=== PATIENT | male | born 1970 | race Caucasian/White ===

== ENCOUNTER 2017-01-24 10:26 | Day surgery (SDC) | payer OTHER ==
[~2017-01-24] VITALS: Ht 182.9 cm; Wt 106.0 kg
[~2017-01-24 10:26] MED LIST: FEXO1TAB25 PO; IBUP200T48 PO; LISI-167 PO; LORA1TAB46 PO; MONT4TAB5 PO; PHYT1CAP2 PO
[2017-01-24] MEDS ORDERED: LACTATED RINGERS 1,000 ML IV SCH (10:53)
[2017-01-24] MEDS ORDERED: LIDOCAINE 1%, 2ML SQ PRN (11:00)
[2017-01-24 11:07] VITALS: BP 128/85
[2017-01-24] MEDS ORDERED: BUPIVACAINE/PF 0.5% ONE (12:23)
[2017-01-24] MEDS ORDERED: MIDAZOLAM 1 MG/ML, 2ML ONE (12:38)
[2017-01-24] MEDS ORDERED: FENTANYL PF 100 MCG/2ML ONE ×2 (12:38→15:04)
[2017-01-24] MEDS ORDERED: CEFAZOLIN 1,000 MG ONE (13:35)
[2017-01-24] MEDS ORDERED: LIDOCAINE-MPF 2% ,5ML ONE (13:35)
[2017-01-24] MEDS ORDERED: DEXAMETHASONE 4 MG/ML, 1ML ONE (13:35)
[2017-01-24] MEDS ORDERED: ONDANSETRON 2MG/ML, 2ML ONE (13:35)
[2017-01-24] MEDS ORDERED: PHENYLEPHRINE 10 MG/ML ONE (13:35)
[2017-01-24] MEDS ORDERED: PROPOFOL 10 MG/ML, 50ML ONE (13:35)
[2017-01-24] MEDS ORDERED: DEXMEDETOMIDINE 200 MCG/2 ML ONE (13:53)
[2017-01-24] MEDS ORDERED: OXYcodone 5 MG/5 ML ORAL.SOL UDC PO PRN (14:30)
[2017-01-24] MEDS ORDERED: FENTANYL PF 100 MCG/2ML IV PRN (14:30)
[2017-01-24] MEDS ORDERED: ACETAMINOPHEN 325 MG TABLET PO PRN (14:30)
[2017-01-24] MEDS ORDERED: hydrALAzine 20 MG/ML, 1ML IV PRN (14:30)
[2017-01-24] MEDS ORDERED: LORazepam 2 MG/ML, 1ML IVPush PRN (14:30)
[2017-01-24] MEDS ORDERED: METOPROLOL 1 MG/ML, 5ML IV PRN (14:30)
[2017-01-24] MEDS ORDERED: MEPERIDINE/PF 25MG/0.5ML IVPush PRN (14:30)
[2017-01-24] MEDS ORDERED: KETOROLAC 30 MG/1 ML IV PRN (14:30)
[2017-01-24] MEDS ORDERED: PROMETHAZINE 25 MG/ML, 1ML IV PRN (14:30)
[2017-01-24] MEDS ORDERED: HYDROmorphone 1 MG/ML, 1ML IV PRN (14:30)
[2017-01-24] MEDS ORDERED: OXYcodone 5 MG/5 ML ORAL.SOL UDC ONE (15:04)
[2017-01-24] MEDS ORDERED: ACETAMINOPHEN 650 MG/20.3 ML UDC ONE (15:04)
== END 2017-01-24 16:15 ==
LOC: OUT 10:26
PROVIDERS: ATTEND Orthopaedic Surgery Orthopaedic Surgery of the Spine
DX: G56.01 Carpal tunnel syndrome, right upper limb (principal); G56.21 Lesion of ulnar nerve, right upper limb; Z88.0 Allergy status to penicillin
CPT/HCPCS: 64718; 64721; J0690; J1100; J2250; J2370; J2405; J2704; J3490; J7120; J3010